=== PATIENT | female | born 1950 | race Hispanic/Latino ===

== ENCOUNTER → 2022-08-07 | Outpatient (CLI) | payer MEDICARE ==
[2022-08-07 12:30] LABS: BASOPHILS % (AUTO) 0.5 % (0.0-5.0); EOSINOPHILS % (AUTO) 1.1 % (0.0-8.0); LYMPHOCYTES % (AUTO) 22.7 % (21.0-51.0); MEAN CORPUSCULAR HGB CONC 33.7 g/dL (32.0-36.0); MEAN CORPUSCULAR VOLUME 88.8 fL (79-99); MONOCYTES % (AUTO) 5.6 % (3.0-13.0); NEUTROPHILS % (AUTO) 69.7 % (40.0-77.0); PLATELET COUNT (AUTO) 300 K/uL (130-400); RED BLOOD CELL COUNT(AUTO) 4.84 MIL/uL (4.00-5.50); RED CELL DISTRIBUTION WIDTH 12.6 % (11.0-15.5); WHITE BLOOD COUNT (AUTO) 7.9 K/uL (4.8-10.8)
[2022-08-07 12:41] LABS: ALBUMIN 4.1 g/dL (3.5-5.0); CREATININE 0.7 mg/dL (0.5-1.5); TOTAL PROTEIN, SERUM 8.2 g/dL (6.0-8.3)
== END | disposition home or self-care (01) ==
LOC: LAB 08:19
PROVIDERS: ATTEND Internal Medicine Cardiovascular Disease
DX: I48.0 Paroxysmal atrial fibrillation (principal); I10 Essential (primary) hypertension; E78.5 Hyperlipidemia, unspecified; Z79.01 Long term (current) use of anticoagulants
CPT/HCPCS: 36415; 80053; 80061; 85025

== ENCOUNTER → 2022-12-23 | Outpatient (CLI) | payer MEDICARE | END | disposition home or self-care (01) | LOC: RAH 10:47 | PROVIDERS: ATTEND Internal Medicine Gastroenterology | DX: R10.10 Upper abdominal pain, unspecified (principal); R14.0 Abdominal distension (gaseous) | CPT/HCPCS: 78264; A9541 ==

== ENCOUNTER 2023-10-20 05:00 | Observation (INO) | payer MEDICARE ==
[2023-10-15 10:20] VITALS: PULSE 75; RESP 18
[2023-10-15 10:22] LABS: BASOPHILS # (AUTO) 0.04 K/uL (0.00-0.20); BASOPHILS % (AUTO) 0.6 % (0.0-5.0); EOSINOPHILS % (AUTO) 1.4 % (0.0-8.0); HEMATOCRIT 42.7 % (36-48); IMMATURE GRANULOCYTE ABSOLUTE 0.02 K/uL (0-1); LYMPHOCYTES # (AUTO) 2.1 K/uL (1.0-4.8); LYMPHOCYTES % (AUTO) 29.2 % (21.0-51.0); MEAN CORPUSCULAR HEMOGLOBIN 29.5 pg (27.0-33.0); MEAN CORPUSCULAR HGB CONC 34.7 g/dL (32.0-36.0); MEAN CORPUSCULAR VOLUME 85.1 fL (79-99); MONOCYTES # (AUTO) 0.4 K/uL (0.1-1.0); MONOCYTES % (AUTO) 5.5 % (3.0-13.0); NEUTROPHILS # (AUTO) 4.5 K/uL (1.8-7.7); PLATELET COUNT (AUTO) 327 K/uL (130-400); RED BLOOD CELL COUNT(AUTO) 5.02 MIL/uL (4.00-5.50); RED CELL DISTRIBUTION WIDTH 13.2 % (11.0-15.5); WHITE BLOOD COUNT (AUTO) 7.1 K/uL (4.8-10.8)
[2023-10-15 10:35] LABS: CREATININE 0.7 mg/dL (0.5-1.0); POTASSIUM 4.1 mmol/L (3.5-5.1)
[2023-10-15 10:38] LABS: INR 0.98 (0.85-1.15); PROTHROMBIN TIME 11.6 SEC (9.6-11.6)
[2023-10-20] VITALS (29 sets, daily range): BP systolic 97–148; BP diastolic 54–83; PULSE 58–120; RESP 14–20; O2SAT 97
[~2023-10-20] VITALS: Ht 162.6 cm; Wt 82.7 kg
[~2023-10-20 05:00] MED LIST: ALBU18HF7 IH; AMLO-259 PO; APIX5TAB PO; CHOL500051 PO; CYAN-106 PO; DULO60CA64 PO; GABA300C PO; METF-444 PO; METO-391 PO; PANT40TA55 PO
[2023-10-20] MEDS: 0.9%NACL 1000ML 1,000 ML IV ONE (06:21)
[2023-10-20] MEDS ORDERED: ONDANSETRON 4MG INJ ONE (08:59)
[2023-10-20] MEDS ORDERED: MIDAZOLAM HCL 1 MG/ML 2ML VIAL ONE (08:59)
[2023-10-20] MEDS ORDERED: PROPOFOL 1000 MG/100 ML 100 ML IV ONE (09:36)
[2023-10-20] MEDS ORDERED: CEFAZOLIN SODIUM 1 GM VIAL ONE (09:37)
[2023-10-20] MEDS: CEFAZOLIN SODIUM 2 GM VIAL ONE ×2 (10:10→17:32)
[2023-10-20] MEDS: TRANEXAMIC ACID 1000MG/10ML ONE ×2 (10:11→11:40)
[2023-10-20] MEDS: CEFAZOLIN SODIUM 1 GM VIAL ONE ×2 (10:57→17:33)
[2023-10-20] MEDS: 0.9%NACL 48.45 ML, ROPIVACAINE 0.5% 49.25ML, EPINEPH 0.5MG KETOROLAC 30MG,CLONIDINE 80MCG IV PRN (10:57)
[2023-10-20] MEDS: GENTAMICIN SULFATE 80 MG/2 ML VIAL ONE (10:57)
[2023-10-20] MEDS ORDERED: PHENYLEPHRINE HCL 10 MG/ML 1ML VIAL IV ONE (11:00)
[2023-10-20] MEDS ORDERED: MEPERIDINE-PF 25 MG/ML SYG ONE (12:09)
[2023-10-20] MEDS ORDERED: LACTULOSE 20 GM/30 ML UDCUP PO PRN (20:00)
[2023-10-20] MEDS ORDERED: ACETAMINOPHEN 325 MG TAB PO PRN (20:00)
[2023-10-20] MEDS ORDERED: ONDANSETRON 4MG INJ IVP PRN (20:00)
[2023-10-20] MEDS ORDERED: BENZOCAINE/MENTH/CETYLPYRD CL 1 EACH LOZENGE MM PRN (20:00)
[2023-10-20] MEDS ORDERED: DIPHENOXYLATE HCL/ATROPINE 2.5/0.025 MG TAB PO PRN (20:00)
[2023-10-20] MEDS ORDERED: DiphenhydrAMINE HCL 50 MG/ML VIAL IM PRN (20:00)
[2023-10-20] MEDS: HYDROMORPH /0.9% NACL/PF PCA 50 ML IV PRN (20:20)
[2023-10-20] MEDS: MAG/ALUM/SIMETH 30 ML UDCUP PO PRN (20:58)
[2023-10-20] MEDS: APIXABAN 5 MG TABLET PO SCH (22:20)
[2023-10-20] MEDS: DIPHENHYDRAMINE HCL 25 MG CAPSULE PO PRN (22:21)
[2023-10-20] MEDS: TRAMADOL HCL 50 MG TABLET PO PRN (22:21)
[2023-10-20] MEDS ORDERED: TRAMADOL HCL 50 MG TABLET PO PRN (22:30)
[2023-10-20] MEDS: MORPHINE 2 MG SYG IVP PRN (23:44)
[2023-10-20] MEDS: 0.9%NACL 1000ML 1,000 ML IV SCH (23:45)
[2023-10-21] VITALS: BP 138/75; PULSE 78; RESP 20
[2023-10-21] MEDS: MORPHINE 2 MG SYG IVP PRN (03:12)
[2023-10-21 03:51] LABS: BASOPHILS # (AUTO) 0.02 K/uL (0.00-0.20); BASOPHILS % (AUTO) 0.3 % (0.0-5.0); EOSINOPHILS # (AUTO) 0.01 K/uL (0.00-0.70); EOSINOPHILS % (AUTO) 0.1 % (0.0-8.0); HEMATOCRIT 29.3 % (36-48); IMMATURE GRANULOCYTE ABSOLUTE 0.05 K/uL (0-1); LYMPHOCYTES # (AUTO) 1.1 K/uL (1.0-4.8); LYMPHOCYTES % (AUTO) 13.8 % (21.0-51.0); MEAN CORPUSCULAR HEMOGLOBIN 29.4 pg (27.0-33.0); MEAN CORPUSCULAR HGB CONC 34.1 g/dL (32.0-36.0); MEAN CORPUSCULAR VOLUME 86.2 fL (79-99); MONOCYTES # (AUTO) 0.5 K/uL (0.1-1.0); MONOCYTES % (AUTO) 6.1 % (3.0-13.0); NEUTROPHILS # (AUTO) 6.2 K/uL (1.8-7.7); NEUTROPHILS % (AUTO) 79.1 % (40.0-77.0); PLATELET COUNT (AUTO) 213 K/uL (130-400); RED CELL DISTRIBUTION WIDTH 13.8 % (11.0-15.5); WHITE BLOOD COUNT (AUTO) 7.8 K/uL (4.8-10.8)
[2023-10-21 04:00] VITALS: BP 149/75; PULSE 82; RESP 20
[2023-10-21 04:03] LABS: CREATININE 0.6 mg/dL (0.5-1.0); POTASSIUM 3.2 mmol/L (3.5-5.1)
[2023-10-21] MEDS ORDERED: KCL 20 MEQ ERTAB PO PRN (05:30)
[2023-10-21] MEDS ORDERED: POTASSIUM CHLORIDE 20MEQ/100ML 100 ML IV PRN (05:30)
[2023-10-21] MEDS: KCL 20 MEQ ERTAB PO ONE (06:05)
[2023-10-21] MEDS ORDERED: Albuterol Sulfate (Ventolin Hfa) IH PRN (07:00)
[2023-10-21] MEDS: POTASSIUM CHLORIDE 10% ELIXIR 20 MEQ/15 ML UDCUP PO PRN (07:54)
[2023-10-21] MEDS: PANTOPRAZOLE 40 MG TAB DR PO SCH (07:54)
[2023-10-21 08:00] VITALS: BP 146/82; PULSE 85; RESP 20
[2023-10-21 08:15] VITALS: O2SAT 98
[2023-10-21] MEDS: METOPROLOL SUCCINATE 50 MG TAB.SR.24H PO SCH (08:51)
[2023-10-21] MEDS: METFORMIN HCL 500 MG TABLET PO SCH (08:51)
[2023-10-21] MEDS: CYANOCOBALAMIN (VITAMIN B-12) 1,000 MCG TABLET PO SCH (08:51)
[2023-10-21] MEDS: GABAPENTIN 300 MG CAPSULE PO SCH (08:52)
[2023-10-21] MEDS ORDERED: APIXABAN 5 MG TABLET PO SCH (09:00)
[2023-10-21 12:00] VITALS: BP 145/79; PULSE 80; RESP 20
[2023-10-21] MEDS ORDERED: ATORVASTATIN PO SCH (21:00)
[2023-10-21] MEDS ORDERED: DULOXETINE HCL 30 MG CAP PO SCH (21:00)
[2023-10-21] MEDS ORDERED: AMLODIPINE PO SCH (21:00)
[2023-10-25] MEDS ORDERED: METO-391 PO (16:52)
[2023-10-25] MEDS ORDERED: AMLO-259 PO (17:58)
[2023-10-25] MEDS ORDERED: DULO60CA64 PO (17:58)
[2023-10-25] MEDS ORDERED: CYAN-106 PO (17:58)
[2023-10-25] MEDS ORDERED: METF-526 PO (17:58)
[2023-10-25] MEDS ORDERED: GABA300C PO (17:58)
[2023-10-25] MEDS ORDERED: CHOL100040 PO (17:58)
[2023-10-25] MEDS ORDERED: APIX5TAB PO (17:58)
[2023-10-25] MEDS ORDERED: ALBU0.63 IH (17:59)
[2023-10-26] MEDS ORDERED: MONT-39 PO (14:08)
[2023-12-13] MEDS ORDERED: BENZ-39 PO (14:13)
[2023-12-13] MEDS ORDERED: AZIT250T PO (14:13)
== END 2023-10-21 15:45 | disposition home or self-care (01) ==
LOC: DAH 05:00 → DAHIP 05:01 → 4BH 18:47
PROVIDERS: ADMIT Orthopaedic Surgery; ATTEND Orthopaedic Surgery
DX: M17.11 Unilateral primary osteoarthritis, right knee (principal); E11.9 Type 2 diabetes mellitus without complications; I10 Essential (primary) hypertension; E78.5 Hyperlipidemia, unspecified; I25.10 Atherosclerotic heart disease of native coronary artery without angina pectoris; J44.9 Chronic obstructive pulmonary disease, unspecified; I48.91 Unspecified atrial fibrillation; M81.0 Age-related osteoporosis without current pathological fracture; M06.9 Rheumatoid arthritis, unspecified; G43.909 Migraine, unspecified, not intractable, without status migrainosus; K21.9 Gastro-esophageal reflux disease without esophagitis; Z85.038 Personal history of other malignant neoplasm of large intestine; Z79.01 Long term (current) use of anticoagulants; Z88.5 Allergy status to narcotic agent; Z90.710 Acquired absence of both cervix and uterus; Z88.1 Allergy status to other antibiotic agents; Z79.84 Long term (current) use of oral hypoglycemic drugs
CPT/HCPCS: 80048 ×2; 85025 ×2; 85610; 85730; 36415 ×2; 87641; 27447; 96365; 96366 ×2; 96375; 82948 ×6; 97161; 97116 ×3; 96376 ×2; 97530 ×3; A6260; G0378 ×23; G0379; A4663; J7030 ×3; J7120; A4215 ×2; A4649 ×4; J0690 ×5; J3490 ×2; J2270 ×4; Q0163; J1580; J2250; J2704; J2405; J2175; J2371; A6223; A4930 ×2; C1763 ×2; C1776; A5120; A4223; A4222; A4221; A6450; A4510

== ENCOUNTER 2024-04-01 05:52 | Day surgery (SDC) | payer MEDICARE ==
[2024-03-30 10:37] LABS: BASOPHILS # (AUTO) 0.05 K/uL (0.00-0.20); BASOPHILS % (AUTO) 0.5 % (0.0-5.0); EOSINOPHILS # (AUTO) 0.09 K/uL (0.00-0.70); HEMATOCRIT 42.6 % (36-48); IMMATURE GRANULOCYTE ABSOLUTE 0.02 K/uL (0-1); LYMPHOCYTES # (AUTO) 1.4 K/uL (1.0-4.8); LYMPHOCYTES % (AUTO) 14.8 % (21.0-51.0); MEAN CORPUSCULAR HEMOGLOBIN 29.4 pg (27.0-33.0); MEAN CORPUSCULAR HGB CONC 33.8 g/dL (32.0-36.0); MEAN CORPUSCULAR VOLUME 86.9 fL (79-99); MONOCYTES # (AUTO) 0.5 K/uL (0.1-1.0); MONOCYTES % (AUTO) 5.2 % (3.0-13.0); NEUTROPHILS # (AUTO) 7.4 K/uL (1.8-7.7); NEUTROPHILS % (AUTO) 78.3 % (40.0-77.0); PLATELET COUNT (AUTO) 331 K/uL (130-400); WHITE BLOOD COUNT (AUTO) 9.4 K/uL (4.8-10.8)
[2024-03-30 10:47] LABS: CREATININE 0.8 mg/dL (0.5-1.0); POTASSIUM 4.6 mmol/L (3.5-5.1)
[2024-03-30 10:48] VITALS: BP 162/83; PULSE 71; RESP 16; TEMP 97.5
[2024-03-30 10:52] LABS: INR 1.09 (0.85-1.15); PROTHROMBIN TIME 11.7 SEC (9.6-11.6)
[2024-03-30 10:53] LABS: PARTIAL THROMBOPLASTIN TIME 39.1 SEC (26.3-35.5)
[2024-04-01] VITALS (22 sets, daily range): BP systolic 102–117; BP diastolic 53–67; PULSE 61–79; RESP 12–17; TEMP 97.1–98.7
[~2024-04-01] VITALS: Ht 160 cm; Wt 81.5 kg
[~2024-04-01 05:52] MED LIST changes: +CHOL100040 PO; -CHOL500051 PO; -DULO60CA64 PO; +ERGO500093 PO; +FAMO40TA7 PO; +FLEC100T3 PO; -METF-444 PO; +METF-526 PO; -METO-391 PO; +METO-409 PO; +PANT40TA54 PO; -PANT40TA55 PO
[2024-04-01] MEDS ORDERED: 0.9%NACL 1000ML 1,000 ML IV ONE (06:20)
[2024-04-01] MEDS ORDERED: HEParin 10,000 UNIT/10ML (1,000 UNIT/ML) VIAL ONE ×2 (07:19→10:19)
[2024-04-01] MEDS ORDERED: FAMOTIDINE 20MG VIAL IV ONE (07:19)
[2024-04-01] MEDS ORDERED: HEParin-NS 1,000 UNIT/500 ML 1,000 ML IV ONE (07:19)
[2024-04-01] MEDS ORDERED: LIDOCAINE HCL 400MG/20ML VIAL ONE (07:19)
[2024-04-01] MEDS ORDERED: FENTanyl CITRate PF 50 MCG/1 ML 2ML VIAL ONE (07:20)
[2024-04-01] MEDS ORDERED: MIDAZOLAM HCL 1 MG/ML 2ML VIAL ONE (07:20)
[2024-04-01] MEDS ORDERED: rocuRONium bROMide 10MG/1ML 5ML VL ONE ×2 (07:20→10:52)
[2024-04-01] MEDS ORDERED: proPOFol 10 MG/ML 20ML VIAL IV ONE (07:20)
[2024-04-01] MEDS ORDERED: LIDOCAINE PF 100MG/5ML (2%) SYRINGE 5ML ONE (07:20)
[2024-04-01] MEDS ORDERED: PHENYLEPHRINE HCL 10 MG/ML 1ML VIAL IV ONE (07:23)
[2024-04-01] MEDS ORDERED: ePHEDrine SULFate 50 MG/ML AMPULE ONE (07:23)
[2024-04-01] MEDS ORDERED: LIDOCAINE HCL 1% MDV 50ML VIAL ONE (07:25)
[2024-04-01] MEDS ORDERED: HEParin-NS 1,000 UNIT/500 ML 500 ML IV ONE ×2 (08:05→08:22)
[2024-04-01] MEDS ORDERED: GLYCOPYRROLATE 0.2 MG/ML 5 ML VIAL ONE (08:40)
[2024-04-01] MEDS ORDERED: ONDANSETRON 4MG INJ ONE (08:40)
[2024-04-01] MEDS ORDERED: dexaMETHasone SOD PHOSPHATE 10MG/ML 1ML VIAL ONE (08:40)
[2024-04-01] MEDS ORDERED: NEOSTIGMINE METHYLSULFATE 1MG/ML IV ONE (08:41)
[2024-04-01] MEDS ORDERED: PROTAMINE SULFATE 10 MG/ML 25ML VIAL IV ONE (11:34)
[2024-04-01] MEDS ORDERED: SUCR1TAB2 PO ×2 (12:20→14:39)
[2024-04-01] MEDS ORDERED: PANTOPRAZOLE 40 MG TAB DR PO ONE (13:30)
[2024-04-01] MEDS: SUCRALFATE 1 GM/10 ML PO STA (15:15)
[2024-04-01] MEDS: SUCRALFATE 1 GM/10 ML PO ONE (15:15)
== END 2024-04-01 16:05 | disposition home or self-care (01) ==
LOC: DAH 05:52
PROVIDERS: ATTEND Internal Medicine Cardiovascular Disease
DX: I48.0 Paroxysmal atrial fibrillation (principal); I10 Essential (primary) hypertension; I25.10 Atherosclerotic heart disease of native coronary artery without angina pectoris; E78.5 Hyperlipidemia, unspecified; E11.9 Type 2 diabetes mellitus without complications; I25.2 Old myocardial infarction; K21.9 Gastro-esophageal reflux disease without esophagitis; Z90.710 Acquired absence of both cervix and uterus; Z90.49 Acquired absence of other specified parts of digestive tract; Z96.652 Presence of left artificial knee joint; Z98.890 Other specified postprocedural states; Z88.1 Allergy status to other antibiotic agents; Z88.5 Allergy status to narcotic agent; Z79.01 Long term (current) use of anticoagulants; Z79.899 Other long term (current) drug therapy
CPT/HCPCS: 80048; 85025; 85610; 85730; 36415 ×2; 93005; 93656; 93657; 85347 ×5; 82948 ×2; A4344; C1894 ×3; C1732 ×3; C1760; A4649 ×2; C1766; J3490 ×6; J3010; J1100; J7030; J2001; J1644 ×5; J2250; J2704; J2405; J2710; J2371; A4215; A4222; A4221; A4663; A4216; A4606; J2720; A4223 ×3

== ENCOUNTER 2024-12-14 21:00 | Emergency (ER) | payer MEDICARE ==
[~2024-12-14] VITALS: Ht 162.6 cm; Wt 82.1 kg
[~2024-12-14 21:00] MED LIST changes: -ALBU18HF7 IH; -CHOL100040 PO; -CYAN-106 PO; +DULO60CA64 PO; -FLEC100T3 PO
--- NOTE | 2024-12-14 22:17 | NUR ---
PT CARE ASSUMED AT THIS TIME
--- NOTE | 2024-12-14 22:20 | EKG ---
[facility] Test Date: 2024-12-14 Test Time: 22:17:01 Pat Name: DAT ORTIZ Department: [facility] Room: Gender: F [employer]: [id number] : 1950 Requested By: GROVER CASTELLON Order Number: [id number] Reading MD: Danyel New Measurements Intervals [place] Rate: 105 P: 24 WI: 171 QRS: -30 QRSD: 76 T: -5 QT: 354 QTc: 468 Interpretive Statements Sinus tachycardia Probable left atrial enlargement Left ventricular hypertrophy Inferior infarct, old Anterior Q waves, possibly due to LVH Electronically Signed On 12-15-2024 07:40:01 CDT by Danyel New Please click the below link to view image of tracing.
[2024-12-14 22:50] LABS: BASOPHILS # (AUTO) 0.02 K/uL (0.00-0.20); BASOPHILS % (AUTO) 0.2 % (0.0-5.0); EOSINOPHILS # (AUTO) 0.01 K/uL (0.00-0.70); EOSINOPHILS % (AUTO) 0.1 % (0.0-8.0); HEMATOCRIT 43.4 % (36-48); IMMATURE GRANULOCYTE ABSOLUTE 0.03 K/uL (0-1); LYMPHOCYTES # (AUTO) 1.2 K/uL (1.0-4.8); LYMPHOCYTES % (AUTO) 11.1 % (21.0-51.0); MEAN CORPUSCULAR HEMOGLOBIN 29.9 pg (27.0-33.0); MEAN CORPUSCULAR HGB CONC 34.8 g/dL (32.0-36.0); MEAN CORPUSCULAR VOLUME 85.9 fL (79-99); MONOCYTES # (AUTO) 0.5 K/uL (0.1-1.0); NEUTROPHILS # (AUTO) 9.1 K/uL (1.8-7.7); NEUTROPHILS % (AUTO) 83.3 % (40.0-77.0); PLATELET COUNT (AUTO) 294 K/uL (130-400); RED BLOOD CELL COUNT(AUTO) 5.05 MIL/uL (4.00-5.50); RED CELL DISTRIBUTION WIDTH 12.8 % (11.0-15.5); WHITE BLOOD COUNT (AUTO) 10.9 K/uL (4.8-10.8)
[2024-12-14] MEDS: ondanSETRON 4MG INJ IVP ONE (22:50)
[2024-12-14] MEDS: PANTOPrazole 40 MG/VIAL IVP ONE (22:50)
[2024-12-14] MEDS: 0.9%NACL 1000ML 1,000 ML IV ONE (22:53)
[2024-12-14 23:03] LABS: CREATININE 0.7 mg/dL (0.5-1.0); POTASSIUM 3.8 mmol/L (3.5-5.1)
[2024-12-14 23:08] LABS: ALBUMIN 4.2 g/dL (3.5-5.0); BILIRUBIN,DIRECT 0.3 mg/dL (0.0-0.3); BILIRUBIN,TOTAL 1.8 mg/dL (0.2-1.0); MAGNESIUM 1.4 mg/dL (1.80-2.40)
[2024-12-14] MEDS ORDERED: IOHEXOL 350 MG/ML 100ML INFUS..BTL IV ONE (23:23)
[2024-12-14 23:41] LABS: APPEARANCE,URINE CLEAR (CLEAR); BILIRUBIN,URINE NEGATIVE (NEGATIVE); COLOR,URINE YELLOW (YELLOW); GLUCOSE, URINE (UA) 50 mg/dL (NEGATIVE); KETONES,URINE 20 mg/dL (NEGATIVE); LEUKOCYTE ESTERASE ,URINE 25 Leu/uL (NEGATIVE); NITRATE,URINE NEGATIVE (NEGATIVE); OCCULT BLOOD,URINE MODERATE (NEGATIVE); PROTEIN,URINE 100 mg/dL (NEGATIVE); UROBILINOGEN,URINE 0.2 mg/dL (0.2-1.0)
[2024-12-14 23:42] LABS: ADD UA MICROSCOPIC YES
[2024-12-14 23:45] LABS: BACTERIA,URINE RARE /HPF (None Seen); MUCUS,URINE FEW LPF (None Seen); SQUAMOUS EPITHELIAL CELL,UR FEW /HPF (0-2)
--- NOTE | 2024-12-14 23:54 | HMCIMG ---
CT ABDOMEN/PELVIS W/CONTRAST HISTORY: Mid abdominal pain COMPARISON: 10/25/2023 TECHNIQUE: Multiple sequential axial images of the abdomen and pelvis were obtained from the dome of the diaphragm through symphysis pubis. Patient was not given contrast through intravenous route. Oral contrast was not given. FINDINGS: No pleural effusion is seen bilaterally. There is no evidence of parenchymal disease or pulmonary nodule of the visualized lower lungs. Degenerative changes of the thoracolumbar spine are present. The heart is not enlarged. Liver is enlarged with fatty changes measuring 20 cm. Small hiatal hernia is seen. Post cholecystectomy changes are seen. The liver, spleen, adrenal glands and pancreas are unremarkable. There is no evidence of hydronephrosis bilaterally. No evidence of renal stone is seen. Fecal material is seen in the colon. There are normal size retroperitoneal and mesenteric lymph nodes. No ascites is seen. No CT evidence of acute appendicitis is seen. There is mild diverticulosis. Pelvic sidewalls are symmetric bilaterally. Bladder is well distended without wall thickening. IMPRESSION: 1. No bowel obstruction is seen. Fecal material in the colon. No ascites. CT was performed with one or more following dose reduction techniques: automated exposure control, adjustment of the mA and kv according to patient's size, or use of a iterative reconstruction technique.
[2024-12-15] MEDS: MAGNESIUM 2GM PREMIX 50ML 50 ML IV SCH (00:02)
--- NOTE | 2024-12-15 00:37 | NUR ---
ORAL FLUIDS GIVEN TO PT
--- NOTE | 2024-12-15 00:40 | ERN ---
ED Note History of Present Illness Stated Complaint: VOMITING,WEAKNESS, ELEVATED BP, TOOK HBP MEDS Chief Complaint: Abdominal Pain Time Seen by MD: 21:54 Time Seen by Midlevel: 21:54 Dictation: The patient is a 74-year-old female with a history of diabetes, hypertension, unknown arrhythmia on Eliquis who presents to the emergency department with complaints of generalized abdominal pain, nausea, nonbloody vomiting onset midnight patient reports she went to a day and night clinic for these symptoms it was found to have an elevated blood pressure in the 160s. Patient denies any fevers, diarrhea constipation. Allergies: Coded Allergies: Sulfa (Sulfonamide Antibiotics) (Unverified Allergy, Unknown, 10/15/23) codeine (Unverified Allergy, Unknown, 10/15/23) Home Meds Reported Medications Ergocalciferol (Vitamin D2) (Vitamin D2) 1,250 Mcg (91473 Unit) Capsule, 1 CAP PO QWEEK for 28 Days, #4 CAP 0 Refills 09/21/24 Pantoprazole Sodium (Pantoprazole Sodium) 40 Mg Tablet.dr, 1 TAB PO DAILY for 30 Days, #30 TAB 0 Refills 09/21/24 Duloxetine HCl (Duloxetine HCl) 60 Mg Capsule.dr, 1 CAP PO HS for 30 Days, #30 CAP 0 Refills 09/21/24 Metoprolol Succinate (Metoprolol Succinate) 100 Mg Tab.er.24h, 100 MG PO BID, TAB 03/30/24 Famotidine (Famotidine) 40 Mg Tablet, 1 TAB PO HS 03/30/24 Amlodipine/Atorvastatin (Amlodipine-Atorvast 10-40 mg) 10 Mg-40 Mg Tablet, 1 EACH PO HS, TAB 10/25/23 Gabapentin (Neurontin) 300 Mg Capsule, 300 MG PO BID, CAP 10/25/23 Apixaban (Eliquis) 5 Mg Tablet, 5 MG PO BID, TAB 10/25/23 Metformin HCl (Metformin HCl ER) 500 Mg Tab.er.24, 500 MG PO BID 10/25/23 Past Medical History Past Medical History: Diabetes-Type II, Heart Disease, Hypertension, Other Additional Past Medical Hx: IRREGULAR HEARTBEAT Surgical History: Hysterectomy, Cholecystectomy, Other Surgical History Other: HEART ABLATION, BILATERAL TOTAL KNEE REPLACEMENT History: Not Applicable RN Note Reviewed/Agreed w/PFSH: Yes Review of System Dictation Constitutional: Negative for fever,chills, and weight loss Eyes: Negative for injury, pain,redness, and discharge ENT: Negative for injury,pain or swelling Cardiovascular: Negative for chest pain, palpitations, and edema Respiratory: Negative for shortness of breath, cough, and wheezing, Abdomen/GI: Negative for diarrhea, and constipation positive for abdominal pain, nausea, vomiting Back: Negative for injury and pain : Negative for injury, bleeding and discharge MS/Extremity: Negative for injury and deformity Skin: Negative for rash, and discoloration Neuro: Negative for headache, weakness, numbness, tingling, and seizure Psych: Negative for suicide ideation, homicidal ideation, and hallucinations Initial Vital Sign VS Vital Signs Date Time Temp Pulse Resp B/P (MAP) Pulse Ox O2 Delivery O2 Flow Rate FiO2 12/14/24 21:53 98.8 124 20 169/108 94 Room Air Physical Exam Dictation Vital Signs reviewed General Appearance: Alert, oriented x 3, no acute distress, well developed, nourished. Head and Face: non-traumatic. Eyes: PERRL, pink conjunctivas, eyelid no trauma, anterior chamber with arcus senilis. Ears: Pinnas intact and no signs of trauma or erythema ear canals clear and no discharge TM no erythema Nose: No discharge, no bleeding. Oropharynx: Mouth normal, tongue pink. pharynx clear,no erythema, tonsils no exudates, no abscesses noted, mucous membrane moist Neck: Supple, non-tender, no thyromegaly, no masses, no JVD, no bruits Breast:Deferred Chest:No tenderness, no crepitus, no paradoxical movement, no retractions Lungs:Clear, well-ventilated, symmetric, no rales, no wheezing, no rhonchi, no stridor, good breath sounds bilaterally Heart: Regular rate, regular rhythm, no murmur, no gallops Vascular: no peripheral edema, Abdomen: Soft, positive bowel sounds, nondistended, no guarding, nontender, no rebound, no masses no hepatomegaly, no splenomegaly, no Carranza's sign, no hernias. Rectal: Deferred Genital: Deferred Neurological: Normal speech, motor function intact, sensory function intact , upper extremities equal in strength, lower extremities equal in strength Musculoskeletal: Neck nontender, full range of motion, back nontender, full range of motion, Extremities: nontender, full range of motion Skin: Color pink, dry, no turgor, no rash, no lacerations, no abrasions, no contusions. Lymphatic: Deferred Results (Laboratory/Radiology) Laboratory/Radiology Laboratory Tests Test 12/14/24 22:39 12/14/24 23:00 White Blood Count 10.9 K/uL (4.8-10.8) H Red Blood Count 5.05 MIL/uL (4.00-5.50) Hemoglobin 15.1 g/dL (12.0-16.0) Hematocrit 43.4 % (36-48) Mean Corpuscular Volume 85.9 fL (79-99) Mean Corpuscular Hemoglobin 29.9 pg (27.0-33.0) Mean Corpuscular Hemoglobin Concent 34.8 g/dL (32.0-36.0) Red Cell Distribution Width 12.8 % (11.0-15.5) Platelet Count 294 K/uL (130-400) Mean Platelet Volume 10.2 fL (7.5-10.5) Immature Granulocyte % (Auto) 0.3 % (0-1) Neutrophils (%) (Auto) 83.3 % (40.0-77.0) H Lymphocytes (%) (Auto) 11.1 % (21.0-51.0) L Monocytes (%) (Auto) 5.0 % (3.0-13.0) Eosinophils (%) (Auto) 0.1 % (0.0-8.0) Basophils (%) (Auto) 0.2 % (0.0-5.0) Neutrophils # (Auto) 9.1 K/uL (1.8-7.7) H Lymphocytes # (Auto) 1.2 K/uL (1.0-4.8) Monocytes # (Auto) 0.5 K/uL (0.1-1.0) Eosinophils # (Auto) 0.01 K/uL (0.00-0.70) Basophils # (Auto) 0.02 K/uL (0.00-0.20) Absolute Immature Granulocyte (auto 0.03 K/uL (0-1) Nucleated Red Blood Cells 0.0 % (0.0-0.19) Sodium Level 142 mmol/L (136-145) Potassium Level 3.8 mmol/L (3.5-5.1) Chloride Level 99 mmol/L (101-111) L Carbon Dioxide Level 28 mmol/L (21-32) Blood Urea Nitrogen 14 mg/dL (7-18) Creatinine 0.7 mg/dL (0.5-1.0) Glomerular Filtration Rate Calc 92 mL/min (>90) Random Glucose 205 mg/dL (70-105) H Total Calcium 9.0 mg/dL (8.5-10.1) Magnesium Level 1.40 mg/dL (1.80-2.40) L Total Bilirubin 1.8 mg/dL (0.2-1.0) H Direct Bilirubin 0.3 mg/dL (0.0-0.3) Aspartate Amino Transf (AST/SGOT) 19 U/L (10-37) Alanine Aminotransferase (ALT/SGPT) 20 U/L (12-78) Alkaline Phosphatase 113 U/L (50-136) Total Creatine Kinase 67 U/L (21-232) # Troponin I High Sensitivity 19 ng/L (4-50) Total Protein 8.0 g/dL (6.0-8.3) Albumin 4.2 g/dL (3.5-5.0) Lipase 39 U/L (16-77) Urine Color YELLOW (YELLOW) Urine Appearance CLEAR (CLEAR) Urine pH 6.0 (5.0-8.0) Urine Specific [place] 1.024 (1.001-1.031) Urine Protein 100 mg/dL (NEGATIVE) H Urine Glucose (UA) 50 mg/dL (NEGATIVE) H Urine Ketones 20 mg/dL (NEGATIVE) H Urine Occult Blood MODERATE (NEGATIVE) H Urine Nitrate NEGATIVE (NEGATIVE) Urine Bilirubin NEGATIVE mg/dL (NEGATIVE) Urine Urobilinogen 0.2 mg/dL (0.2-1.0) Urine Leukocyte Esterase 25 [place]/uL (NEGATIVE) H Urine RBC 11-25 /HPF (0-1) H Urine WBC 6-10 /HPF (0-1) H Urine Squamous Epithelial Cells FEW /HPF (0-2) Urine Bacteria RARE /HPF (None Seen) REASON: mid abdominal pain ORDERING PHYSICIAN: GROVER CASTELLON PROCEDURE: ABD PEL W - CT ABDOMEN/PELVIS W/CONTRAST CT ABDOMEN/PELVIS W/CONTRAST HISTORY: Mid abdominal pain COMPARISON: 10/25/2023 TECHNIQUE: Multiple sequential axial images of the abdomen and pelvis were obtained from the dome of the diaphragm through symphysis pubis. Patient was not given contrast through intravenous route. Oral contrast was not given. FINDINGS: No pleural effusion is seen bilaterally. There is no evidence of parenchymal disease or pulmonary nodule of the visualized lower lungs. Degenerative changes of the thoracolumbar spine are present. The heart is not enlarged. Liver is enlarged with fatty changes measuring 20 cm. Small hiatal hernia is seen. Post cholecystectomy changes are seen. The liver, spleen, adrenal glands and pancreas are unremarkable. There is no evidence of hydronephrosis bilaterally. No evidence of renal stone is seen. Fecal material is seen in the colon. There are normal size retroperitoneal and mesenteric lymph nodes. No ascites is seen. No CT evidence of acute appendicitis is seen. There is mild diverticulosis. Pelvic sidewalls are symmetric bilaterally. Bladder is well distended without wall thickening. IMPRESSION: 1. No bowel obstruction is seen. Fecal material in the colon. No ascites. CT was performed with one or more following dose reduction techniques: automated exposure control, adjustment of the mA and kv according to patient's size, or use of a iterative reconstruction technique. Labs Reviewed?: Yes EKG: (+) rhythm (Sinus tachycardia) EKG Comment: Date:12/14/2024 Time:7 Ventricular rate:105 [place] interval:171 QRS duration:76 QT/QTc:354 EKG interpretation: Sinus tachycardia, left ventricular hypertrophy, anterior Q-waves Reviewed by ED Attending, no STEMI ED Course ED Course Orders Procedure Category Date Status Time Cbc With Differential LAB 12/14/24 Complete 22:01 Troponin I High LAB 12/14/24 Complete Sensitivity 22:01 Urinalysis Profile LAB 12/14/24 Complete 22:01 12 Lead Ekg Tracing- EKG 12/14/24 Complete Technical 22:01 0.9%Nacl 1000ml (Ns PHA 12/14/24 Complete 1000ml) 22:30 Ondansetron 4mg Inj PHA 12/14/24 Complete (Zofran 4mg Inj) 22:30 Pantoprazole 40mg Inj PHA 12/14/24 Complete (Protonix 40mg Inj 22:30 Creatine Kinase, Total LAB 12/14/24 Complete 22:01 Chest 1vw RAD 12/14/24 Taken 22:01 Lipase LAB 12/14/24 Complete 22:01 Basic Metabolic Panel LAB 12/14/24 Complete 22:01 Hepatic Function Panel LAB 12/14/24 Complete 22:01 Magnesium LAB 12/14/24 Complete 22:01 Ct Abdomen/Pelvis CT 12/14/24 Resulted W/Contrast 23:06 Iohexol (Omnipaque) PHA 12/14/24 Complete 23:23 Magnesium 2gm Premix PHA 12/14/24 In Process 50ml (Magnesium 2gm 23:30 Culture Urine CARMELLA 12/14/24 In Process 23:55 Ceftriaxone 1g Vial PHA 12/15/24 Complete (Rocephine 1g Inj) 00:30 Current Medications Medications (Trade) Dose Ordered Sig/Dulce Route PRN Reason Start Time Stop Time Status Last Admin Dose Admin Ceftriaxone Sodium (ROCEphine 1G INJ) 1 gm ONCE ONCE IVPB 12/15/24 00:30 12/15/24 00:31 DC Iohexol (Omnipaque) 35,000 mg STK-MED ONCE IV 12/14/24 23:23 12/14/24 23:24 DC Magnesium Sulfate 50 ml @ 0 mls/hr PROTOCOL IV 12/14/24 23:30 01/13/25 23:29 12/15/24 00:02 Ondansetron HCl (zoFRAN 4MG INJ) 4 mg ONCE ONCE IVP 12/14/24 22:30 12/14/24 22:31 DC 12/14/24 22:50 Pantoprazole Sodium (PROTonix 40MG INJ) 40 mg ONCE ONCE IVP 12/14/24 22:30 12/14/24 22:31 DC 12/14/24 22:50 Sodium Chloride 1,000 ml @ 0 mls/hr ONCE ONCE IV 12/14/24 22:30 12/14/24 22:31 DC 12/14/24 22:53 Vital Signs Date Time Temp Pulse Resp B/P (MAP) Pulse Ox O2 Delivery O2 Flow Rate FiO2 12/14/24 21:53 98.8 124 20 169/108 94 Room Air Medical Decision Making MDM The patient is a 74-year-old female with a history of diabetes, hypertension, unknown arrhythmia on Eliquis who presents to the emergency department with complaints of generalized abdominal pain, nausea, nonbloody vomiting onset midnight patient reports she went to a day and night clinic for these symptoms it was found to have an elevated blood pressure in the 160s. Patient denies any fevers, diarrhea constipation. CBC showed mild leukocytosis, no anemia, chemistry showed mild hypomagnesemia, hypochloremia, urinalysis positive for leukocyte esterase. CT abdomen showed no bowel obstruction. Patient received IV fluids, antiemetic medication, pain medication, antibiotics for UTI. Patient reports she feels better. On physical exam patient is in no acute distress, nontender abdomen to palpation. neurologically intact Labs and imaging discussed with the patient who agrees to be discharged and follow up with PCP. Differential diagnosis: Gastroenteritis, UTI, dehydration, electrolyte imbalance Need for hospitalization: Patient does not meet criteria for hospitalization. There are no social concerns with this patient. DX & DISP Disposition: Discharge Departure Impression: Primary Impression: Gastroenteritis Additional Impressions: Hypomagnesemia, Nausea and vomiting, UTI (urinary tract infection) Condition: Stable Scripts Cephalexin Monohydrate (Keflex) 500 Mg Cap 500 MG PO BID for 5 Days, #10 CAP Prov: GROVER CASTELLON [facility] 12/15/24 Pantoprazole Sodium (Pantoprazole Sodium) 20 Mg Tablet.dr 1 TAB PO DAILY for 30 Days, #30 TAB 0 Refills Prov: GROVER CASTELLON [facility] 12/15/24 Ondansetron (Ondansetron Odt) 4 Mg Tab.rapdis 4 MG PO Q6HPRN PRN for nausea, #16 TAB 0 Refills Prov: GROVER CASTELLON [facility] 12/15/24 Additional Instructions: Please follow up with your primary doctor in 1-2 days. Take your medications as prescribed. Start with a bland diet like toast bananas rice applesauce. If you develop severe nausea and vomiting please return to ER. FOLLOW-UP WITH PRIMARY CARE PROVIDER IN 1 TO 2 DAYS. TAKE MEDICATIONS DIRECTED HERE IN THE EMERGENCY ROOM. OKAY TO CONTINUE HOME MEDICATIONS UNLESS OTHERWISE DISCUSSED DURING YOUR VISIT IN THE EMERGENCY ROOM TODAY. RETURN TO YOUR NEAREST EMERGENCY ROOM IF SYMPTOMS WORSEN OR IF THERE IS NO IMPROVEMENT. CALL 911 IF YOU NEED IMMEDIATE ASSISTANCE. TAKE TYLENOL OR MOTRIN [id number] NEEDED AND IF NO CONTRAINDICATIONS ARE PRESENT. INCREASE ORAL HYDRATION. A WOUND CULTURE OR URINE CULTURE WAS ORDERED HERE IN THE EMERGENCY ROOM DEPARTMENT PLEASE FOLLOW-UP WITH PRIMARY CARE PROVIDER AND ADVISE THEM TO GET REPEAT PORTS FROM OUR FACILITY. IF YOU HAD ANY LEVAR WRAP/SPLINTS THAT WERE APPLIED HERE, PLEASE DO NOT REMOVE THEM UNTIL YOU SEE YOUR PRIMARY CARE OR SPECIALTY. Referrals: SUZY MENDOZA MD (PCP) Time of Disposition: 00:56 I have reviewed the case, and I agree with, Diagnosis and Plan GROVER CASTELLON [employer] December 15, 2024 00:40
[2024-12-15] MEDS ORDERED: PANT20TA18 PO (00:58)
[2024-12-15] MEDS ORDERED: CEPH500B PO (00:58)
[2024-12-15] MEDS ORDERED: ONDA-243 PO (00:58)
[2024-12-15] MEDS: cefTRIAXone 1G VIAL IVPB ONE (01:57)
--- NOTE | 2024-12-15 03:02 | NUR ---
PT TOLERATED ORAL FLUIDS
[2024-12-15 03:10] VITALS: BP 149/84; PULSE 85; RESP 16; TEMP 98; O2SAT 96
--- NOTE | 2024-12-15 08:44 | HMCIMG ---
CHEST 1VW HISTORY: Dizziness COMPARISON: 12/13/2023 FINDINGS: A frontal projection of the chest was obtained. No acute pulmonary infiltrates is seen. The heart is borderline enlarged. Degenerative changes are seen. Aortic calcifications are seen. IMPRESSION: 1. No acute pulmonary infiltrate is seen.
== END 2024-12-15 03:12 | disposition home or self-care (01) ==
LOC: EDH 21:00
DX: K52.9 Noninfective gastroenteritis and colitis, unspecified (principal); E83.42 Hypomagnesemia; N39.0 Urinary tract infection, site not specified; R11.2 Nausea with vomiting, unspecified; E11.9 Type 2 diabetes mellitus without complications; I11.0 Hypertensive heart disease with heart failure; Z79.01 Long term (current) use of anticoagulants; Z79.84 Long term (current) use of oral hypoglycemic drugs; Z79.899 Other long term (current) drug therapy; Z88.2 Allergy status to sulfonamides; Z88.5 Allergy status to narcotic agent; Z90.49 Acquired absence of other specified parts of digestive tract; Z90.710 Acquired absence of both cervix and uterus; Z96.653 Presence of artificial knee joint, bilateral
CPT/HCPCS: 99285; 74177; 96365; 96375; 71045; 96361; 82550; 80076; 83735; 84484; 80048; 83690; 85025; 87086; 81001; 36415; 93005; J3475; J2405; J2470; Q9967; J0696

== ENCOUNTER 2025-06-07 05:50 | Day surgery (SDC) | payer MEDICARE ==
[2025-06-02 13:36] LABS: IMMATURE GRANULOCYTE ABSOLUTE 0.03 K/uL (0-1); NUCLEATED RED BLOOD CELLS 0.0 % (0.0-0.19); PLATELET COUNT (AUTO) 285 K/uL (130-400); RED BLOOD CELL COUNT(AUTO) 4.55 MIL/uL (4.00-5.50); RED CELL DISTRIBUTION WIDTH 13.5 % (11.0-15.5); WHITE BLOOD COUNT (AUTO) 7.4 K/uL (4.8-10.8)
[2025-06-02 13:38] VITALS: BP 131/80; PULSE 81; RESP 18; TEMP 97.3
[2025-06-02 13:46] LABS: CREATININE 0.8 mg/dL (0.5-1.0); GLOMERULAR FILTR. RATE CALC 78.0 mL/min (>90); GLUCOSE,RANDOM 130.0 mg/dL (70-105); SODIUM SERUM 139.0 mmol/L (136-145); UREA NITROGEN, BLOOD 15.0 mg/dL (7-18)
[2025-06-02 13:47] LABS: INR 1.08 (0.85-1.15)
[2025-06-07] VITALS (21 sets, daily range): BP systolic 93–137; BP diastolic 51–76; PULSE 57–71; RESP 10–18; TEMP 97.2–97.7
[~2025-06-07] VITALS: Ht 165.1 cm; Wt 85.7 kg
[~2025-06-07 05:50] MED LIST changes: +ALBU18HF7 IH; +DRON400T7 PO; -ERGO500093 PO; -FAMO40TA7 PO; -METO-409 PO; +METO100T14 PO; +METO50TA18 PO
[2025-06-07] MEDS ORDERED: MIDAZOLAM HCL 1 MG/ML 2ML VIAL ONE (07:08)
[2025-06-07] MEDS ORDERED: LIDOCAINE HCL 400MG/20ML VIAL ONE (07:40)
[2025-06-07] MEDS ORDERED: SODIUM BICARB 50MEQ 50ML VIAL 50 ML ONE (07:40)
[2025-06-07] MEDS ORDERED: HEParin-NS 1,000 UNIT/500 ML 500 ML IV ONE (07:41)
[2025-06-07] MEDS ORDERED: NEOSTIGMINE METHYLSULFATE 1MG/ML IV ONE (13:15)
[2025-06-07] MEDS ORDERED: GLYCOPYRROLATE 0.2 MG/ML 5 ML VIAL ONE (13:15)
[2025-06-07] MEDS ORDERED: PANT40TA55 PO (13:32)
[2025-06-07] MEDS ORDERED: SUCR1ORA15 PO (13:32)
[2025-06-07] MEDS: SUCRALFATE 1 GM/10 ML PO ONE (15:07)
== END 2025-06-07 17:12 | disposition home or self-care (01) ==
LOC: DAH 05:50
PROVIDERS: ATTEND Internal Medicine Cardiovascular Disease
DX: I48.19 Other persistent atrial fibrillation (principal); I25.10 Atherosclerotic heart disease of native coronary artery without angina pectoris; I10 Essential (primary) hypertension; E11.9 Type 2 diabetes mellitus without complications; E78.5 Hyperlipidemia, unspecified; I85.00 Esophageal varices without bleeding; Z79.01 Long term (current) use of anticoagulants; Z86.73 Personal history of transient ischemic attack (TIA), and cerebral infarction without residual deficits; Z90.710 Acquired absence of both cervix and uterus; Z88.5 Allergy status to narcotic agent; Z79.899 Other long term (current) drug therapy; Z98.890 Other specified postprocedural states
CPT/HCPCS: 80048; 85025; 85610; 85730; 36415; 93656; 93657 ×2; 82948 ×2; A4223 ×3; C1894 ×3; C1732 ×3; C1760 ×4; A4649 ×2; C1766; J3010 ×2; J3490 ×5; J2720; J1644 ×4; J2250; J2704; J2405; J2710; J2371 ×2; A4215; A4222; A4221; A4663; A4216; A4606